=== PATIENT | male | born 1970 | race Caucasian/White ===

== ENCOUNTER → 2016-10-24 | Outpatient (CLI) | payer BC | END | disposition home or self-care (01) | LOC: YCFC.O 10-22 13:03 | PROVIDERS: ATTEND Nurse Practitioner Family | DX: J44.9 Chronic obstructive pulmonary disease, unspecified (principal) ==

== ENCOUNTER → 2018-12-30 | Outpatient (CLI) | payer BC ==
--- NOTE | 2018-12-30 14:52 | MRI ---
EXAM DESCRIPTION: Shoulder,Left CLINICAL HISTORY: 48 years, Male, Injured shoulder about one month ago pushing heavy object. Limited range of motion lifting apcitide. COMPARISON: None TECHNIQUE: MRI of the left shoulder was performed with multiplanar multi sequence imaging without intravenous contrast. FINDINGS: Rotator tendons: The supraspinatus and infraspinatus tendons are intact. The subscapularis and teres minor tendons are intact. No focal rotator cuff tear. Rotator muscles: No rotator cuff muscle atrophy. Glenoid labrum: Limited evaluation demonstrate abnormal increased signal within the anterior (for example series 301 image 10), nonspecific but may represent a nondisplaced labral tear. Acromion: The acromion morphology is type one. Bone and joints: Small degenerative subcortical cysts at the posterior humeral head No focal bone marrow contusion or fracture. Mild thinning of the medial humeral head cartilage. No full-thickness thickness cartilage defect. Mild right acromioclavicular joint osteoarthrosis with mild capsular hypertrophy. Biceps tendon: Normal course and morphology of the biceps tendon long head within the bicipital groove. The biceps labral anchor appears intact. Small amount of fluid distends the biceps tendon sheath. Soft tissues: No solid or cystic mass is seen. There is edema within the rotator cuff interval with associated grade 1 sprain of the superior glenohumeral ligament and coracoacromial ligament. IMPRESSION: 1. No focal rotator cuff tear. 2. Left rotator interval injury and edema with associated grade 1 sprains of the superior glenohumeral and coracoacromial ligaments. 3. Suspect left anterior labrum injury/nondisplaced tear. 4. Mild biceps tenosynovitis. Electronically signed by: Chris Phillips DO 12/30/2018 2:50 PM CDT
== END ==
LOC: MRI 11:00
PROVIDERS: ATTEND Emergency Medicine
DX: M19.012 Primary osteoarthritis, left shoulder (principal); S43.492A Other sprain of left shoulder joint, initial encounter; M75.02 Adhesive capsulitis of left shoulder

== ENCOUNTER → 2019-01-22 | Outpatient (CLI) | payer BC ==
--- NOTE | 2019-01-22 09:03 | RAD ---
EXAM DESCRIPTION: Shoulder,Left three x-ray Views CLINICAL HISTORY: shoulder pain COMPARISON: None Available. TECHNIQUE: A views of the left shoulder. FINDINGS: There is adequate internal and external rotation. Normal alignment on transscapular Y view There is no fracture or dislocation. Mild degenerative narrowing at the AC joint with minimal spur formation. No focal bone lesion. IMPRESSION: Negative for fracture or dislocation. Electronically signed by: Lonny Yin MD 01/22/2019 9:01 AM CDT
== END ==
LOC: RAD 08:28
PROVIDERS: ATTEND Orthopaedic Surgery
DX: M25.512 Pain in left shoulder (principal)

== ENCOUNTER → 2019-03-18 | Outpatient (CLI) | payer BC ==
--- NOTE | 2019-03-19 08:54 | CT ---
Procedure: CT LUNG SCREENING Exam Date: 03/18/2019 Ordering Provider: YAO GARCIA Clinical Indication: PERSONAL HISTORY OF TOBACCO USE 12 years smoking cessation. 30 pack years. This patient meets eligibility criteria for low-dose CT lung cancer screening. Comparison: Two-view chest . Technique: Using a multislice scanner, sequential helical axial imaging was obtained in the thorax, 2.5 mm thickness, 2.5 mm separation, from the level of the thoracic inlet through the lung bases without IV contrast. A low dose protocol was utilized for BMI less than 30: BMI: 22.8. CTDI: 1.76 mGy. 120. kVp. 45 mA. DLP 66.43 mGy-centimeters. 2D sagittal and coronal reconstructed images, 6.0 mm thickness, were obtained. This exam was performed according to our departmental dose optimization program which includes use of automated exposure control, adjustment of the mA and/or kV according to patient size and/or use of iterative reconstruction technique. Nodule measurements under 10 mm are given as mean value of 3 axes diameters. FINDINGS: Lungs and large airways: Bilateral cystic bronchiectasis in the mid lung [place], more left than right. Bilateral pleural-based blebs and bulla and scattered blebs in the upper lung [place]. Minimal bilateral mosaic densities in the lung [place]. Bilateral pleural-parenchymal scarring in the lung apices. Pleural parenchymal scarring in the left lower lobe. 3.8 mm groundglass nodule in the right lower lobe on axial image . Bibasilar dependent atelectasis. Pleura and space: Bilateral focal and sporadic pleural thickening with no effusion or pneumothorax. Mediastinum and justin: evaluation limited by low dose technique and lack of IV contrast. No enlarged nodes are soft tissue masses. Heart and great vessels: Negative. Chest wall, lower neck, axillae: Evaluation also limited by same factors as described above. Bilateral axillary lymph nodes. Upper abdomen: Evaluation limited by low-dose technique. No free air or free fluid in the included peritoneal space. Included organs are normal density. Osseous structures: Evaluation limited by low dose MIP technique. Minimal spondylosis. No lytic or blastic lesions. IMPRESSION: 1. Cystic bronchiectasis in the midlung [place] more left than right. Groundglass nodule less than 4 mm right lower lobe. Bilateral parenchymal pleural scarring. Bilateral pleural scarring more than upper lobes and apices. No abnormal nodules and no mass. No focal infiltrates.. [facility] Best Practice Recommendations: please see below for Lung RADS category and FOLLOW-UP.* *Lung RADS category CATEGORY 2- Nodules with a very low likelihood (less than 1%) of becoming a clinically active cancer due to size or lack of growth. Nodules: Perifissural nodule(s) < 10 mm. (526mm3). Solid or part solid nodule(s) less than 6mm (113.1 mm3), new solid nodule less than 4mm (33.5 mm3). Ground glass nodule(s) less than 30mm (19988.2 mm3) or unchanged or slow growing ground glass nodule 30mm or greater. Cat 3 or 4 nodule unchanged for 3 or more months. FOLLOW-UP: Continue annual screening with a Low Dose Chest CT in 12 months for re-evaluation. Electronically signed by: Alonso Franklin MD 03/19/2019 8:53 AM CDT
== END ==
LOC: CT 11:09
PROVIDERS: ATTEND Emergency Medicine
DX: Z87.891 Personal history of nicotine dependence (principal); J47.9 Bronchiectasis, uncomplicated; R91.8 Other nonspecific abnormal finding of lung field